=== PATIENT | female | born 1990 | race Caucasian/White ===

== ENCOUNTER 2023-05-30 10:54 | Outpatient (CLI) | payer SELFPAY | END 2023-05-30 10:55 | disposition home or self-care (01) | LOC: ANHAUDIO 10:55 | PROVIDERS: Visit Provider Otolaryngology | DX: H93.19 Tinnitus, unspecified ear (principal); H92.02 Otalgia, left ear; H93.8X2 Other specified disorders of left ear; H90.12 Conductive hearing loss, unilateral, left ear, with unrestricted hearing on the contralateral side | CPT/HCPCS: 92557; 92567 ==